=== PATIENT | male | born 1955 | race Two or more races ===

== ENCOUNTER → 2021-03-28 | Outpatient (CLI) | payer OTHER ==
[~2021-03-28] MED LIST: ONDANSETRON PF 4 MG/2 ML VIAL. ONE
--- NOTE | 2021-03-28 13:42 | RAD ---
EXAM: Renal sonogram. HISTORY: Benign prostatic hyperplasia. Incomplete bladder emptying. TECHNIQUE: Sonographic imaging of the kidneys and bladder was performed. COMPARISON: None. FINDINGS: The kidneys are normal in size. No solid or cystic renal lesion is seen. 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 There is no hydronephrosis. There is no measurable post void bladder residual. IMPRESSION: 1. Prominent left renal pyramids. 2. No hydronephrosis. 3. No bladder residual. Electronically signed by: Delilah Pickens MD (03/28/2021 1:40 PM) [id number]
== END ==
LOC: US 12:46
PROVIDERS: ATTEND Family Medicine
DX: N40.1 Benign prostatic hyperplasia with lower urinary tract symptoms (principal); R39.14 Feeling of incomplete bladder emptying
CPT/HCPCS: 76770